=== PATIENT | female | born 2000 | race African-American/Black ===

== ENCOUNTER 2021-10-07 17:02 | Emergency (ER) | payer OTHER, SELFPAY ==
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
[2021-10-07 17:16] VITALS: BP 132/72; PULSE 97; RESP 20; TEMP 37
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
--- NOTE | 2021-10-07 18:06 | PC.NURSE ---
attempted IV access x 1. unsuccessful. another RN to try
[2021-10-07] MEDS: CLINDAMYCIN 600 MG/D5W 50 ML 600 MG/50 ML PIGGYBACK 100 MG IVPB (18:12)
[2021-10-07] MEDS: TETANUS,DIPHTHERIA,AC PERTUSSIS ADULT (0.5 ML) BOOSTRIX IM (18:13)
== END 2021-10-07 18:42 | disposition home or self-care (01) ==
PROVIDERS: Emergency Provider Nurse Practitioner Family
DX: L02.01 Cutaneous abscess of face (principal); L03.211 Cellulitis of face; Z23 Encounter for immunization; Y04.0XXA Assault by unarmed brawl or fight, initial encounter
CPT/HCPCS: 70150; 90471; 90715; 96365; 99284